=== PATIENT | male | born 1940 | race Caucasian/White ===

== ENCOUNTER 2019-09-17 18:58 | Emergency (ER) | payer OTHER ==
[~2019-09-17] VITALS: Ht 162.6 cm; Wt 56.7 kg
== END 2019-09-17 21:14 | disposition home or self-care (01) ==
LOC: ER 18:58
DX: S41.152A Open bite of left upper arm, initial encounter (principal); W54.0XXA Bitten by dog, initial encounter; Y93.89 Activity, other specified; Y92.89 Other specified places as the place of occurrence of the external cause; Y99.8 Other external cause status